=== PATIENT | female | born 1940 | race Caucasian/White ===

== ENCOUNTER 2018-05-21 09:49 | Outpatient (CLI) | payer OTHER ==
[~2018-05-21 09:49] MED LIST: ALLO300T2 PO; LISI-600 PO; LOP600 PO; POTASSIUM CITRATE; SIMV40TA5 PO
== END 2018-05-21 20:58 | disposition home or self-care (01) ==
LOC: SRD 09:49
PROVIDERS: ATTEND Family Medicine
DX: R06.2 Wheezing (principal); R05 Cough
CPT/HCPCS: 71046-TC